=== PATIENT | female | born 2005 | race Caucasian/White ===

== ENCOUNTER 2025-01-06 13:00 | Emergency (ER) | payer OTHER ==
[~2025-01-06] VITALS: Ht 162.6 cm; Wt 79.8 kg
[2025-01-06 13:40] LABS: CORONAVIRUS COVID-19 AG NEGATIVE (NEGATIVE); INFLUENZA A AG NEGATIVE (NEGATIVE); INFLUENZA B AG NEGATIVE (NEGATIVE)
[2025-01-06 14:36] VITALS: BP 112/76
== END 2025-01-06 14:36 | disposition home or self-care (01) ==
LOC: ED 13:00
PROVIDERS: Emergency Medicine
DX: J06.9 Acute upper respiratory infection, unspecified (principal)
CPT/HCPCS: 36415; 87651; 99283

== ENCOUNTER 2025-01-09 14:07 | Emergency (ER) | payer OTHER ==
[~2025-01-09] VITALS: Ht 162.6 cm; Wt 79.8 kg
[2025-01-09] MEDS ORDERED: TETANUS-DIPHTHERIA TOXOIDS/PF 0.5 ML VIAL IM ONE (14:45)
[2025-01-09 15:02] VITALS: BP 113/70
== END 2025-01-09 15:03 | disposition home or self-care (01) ==
LOC: ED 14:07
DX: S90.511A Abrasion, right ankle, initial encounter (principal); Z23 Encounter for immunization; W20.8XXA Other cause of strike by thrown, projected or falling object, initial encounter
CPT/HCPCS: 73610; 90471; 90714; 99283-25

== ENCOUNTER 2025-02-14 11:04 | Emergency (ER) | payer OTHER ==
[~2025-02-14] VITALS: Ht 162.6 cm; Wt 77.8 kg
[2025-02-14] MEDS ORDERED: diphenhydrAMINE HCL 50 MG/ML VIAL IV ONE (12:00)
[2025-02-14] MEDS ORDERED: SODIUM CHLORIDE 0.9% 1,000 ML IV ONE (12:00)
[2025-02-14] MEDS ORDERED: DEXAMETHASONE SOD PHOS 10 MG/ML VIAL IV ONE (12:00)
[2025-02-14] MEDS ORDERED: KETOROLAC TROMETHAMINE 30 MG/ML VIAL IV ONE (12:00)
[2025-02-14] MEDS ORDERED: METOCLOPRAMIDE HCL 10 MG/2 ML SDV IV ONE (12:00)
[2025-02-14] MEDS ORDERED: REGLAN10 MG PO (13:12)
[2025-02-14 13:20] VITALS: BP 111/75
== END 2025-02-14 13:20 | disposition home or self-care (01) ==
LOC: ED 11:04
DX: R51.9 Headache, unspecified (principal)
CPT/HCPCS: 96374; 96375; 99283-25; J1100; J1200; J1885; J2765; J7030

== ENCOUNTER 2025-11-23 05:14 | Emergency (ER) | payer OTHER ==
[~2025-11-23] VITALS: Ht 162.6 cm; Wt 77.8 kg
[~2025-11-23 05:14] MED LIST: REGLAN10 MG PO
[2025-11-23] MEDS ORDERED: DEXAMETHASONE SOD PHOS 4 MG/ML VIAL IM ONE (05:30)
[2025-11-23 06:14] LABS: INFLUENZA B NAA NEGATIVE (NEGATIVE); RESPIRATORY SYNCYTIAL VIR NAA NEGATIVE (NEGATIVE)
[2025-11-23] MEDS ORDERED: AMOXICILLIN500 MG PO (06:38)
[2025-11-23] MEDS ORDERED: AMOXICILLIN 500 MG HOME.PACK PO ONE (06:45)
[2025-11-23] MEDS ORDERED: methylPREDNISolone 4 MG HOME.PACK PO ONE (06:45)
== END 2025-11-23 06:49 | disposition home or self-care (01) ==
LOC: ED 05:14
PROVIDERS: Family Medicine
DX: J02.0 Streptococcal pharyngitis (principal)
CPT/HCPCS: 36415; 86308; 87502; 87651; 96372; 99283; J1100; U0002